=== PATIENT | female | born 1960 | race Caucasian/White ===

== ENCOUNTER 2018-04-05 14:02 | Observation (INO) | payer BC ==
[~2018-04-05] VITALS: Ht 170.2 cm; Wt 104.8 kg
[2018-04-05 14:09] VITALS: BP 173/103
[2018-04-05] MEDS ORDERED: VITAMIN D5000 UNIT PO (14:38)
[2018-04-05] MEDS ORDERED: ELIQUIS5 MG PO (14:39)
[2018-04-05] MEDS ORDERED: ENALAPRIL MALEA20 MG PO ×2 (14:39→14:42)
[2018-04-05] MEDS ORDERED: NORVASC2.5 MG PO (14:40)
[2018-04-05] MEDS ORDERED: SYNTHROID150 MCG PO (14:40)
[2018-04-05] MEDS ORDERED: CARVEDILOL12.5 MG PO (14:40)
[2018-04-05] MEDS ORDERED: PLAQUENIL200 MG PO (14:42)
[2018-04-05 14:43] LABS: HEMATOCRIT 39.5 % (37.0-47.0); HEMOGLOBIN 13.1 gm/dL (12.0-15.0); MCHC 33.3 g/dL (28.0-37.0); MCV 84.1 fL (80.0-100.0); RBC 4.69 mil/uL (4.20-5.00); RDW-CV 14.5 % (10.5-14.5); WBC 6.1 thou/uL (4.0-11.0)
[2018-04-05 14:51] LABS: CALCIUM 9.8 mg/dL (8.5-10.1); POTASSIUM 4.5 mmol/L (3.5-5.1)
[2018-04-05 14:52] LABS: APTT 31.3 Seconds (25.0-31.3); INR 1.1; PROTIME 10.8 Seconds (9.20-11.50)
[2018-04-05 14:56] LABS: ALBUMIN 3.5 g/dL (3.4-5.0); TOTAL BILIRUBIN 0.3 mg/dL (<0.1-1.0); TOTAL PROTEIN 7.4 g/dL (6.4-8.2)
--- NOTE | 2018-04-05 16:36 | 2DMMODE ---
[place] [address] 2 D/M-MODE ECHOCARDIOGRAM Name: CARMINA TERRAZAS Room: [place] [address] ADM IN [facility]#: [id number] Admission: 04/05/18 Attend Phys: Johann Meadows Discharge: Date of : 56 Date of Service: 04/05/18 1635 Report #: [id number] THIS REPORT FOR: //name// APPROVED REPORT Study performed: 04/05/2018 15:53:53 EXAM: Comprehensive 2D, Doppler, and color-flow Echocardiogram Patient Location: In-Patient Room #: er Status: routine BSA: 2.11 HR: 60 bpm BP: 164/80 mmHg Rhythm: NSR Other Information Study Quality: Good Indications Aortic Valve Disease Syncope Dizziness 2D Dimensions LVEF(%): 75.82 (>50%) IVSd: 12.95 (7-11mm) LVOT Diam: 18.77 (18-24mm) LVDd: 44.32 mm PWd: 10.51 (7-11mm) Ascending Ao: 33.84 (22-36mm) LVDs: 24.66 (25-40mm) Aortic Root: 28.05 mm Leyva's LVEF: 75.82 % Volumes Left Atrial Volume (Systole) LA ESV Index: 40.20 mL/m2 Aortic Valve AoV Peak Koko.: 2.71 m/s AO Peak Gr.: 29.45 mmHg LVOT Max P.71 mmHg AO Mean Gr.: 15.38 mmHg LVOT Mean P.58 mmHg LVOT Max V: 1.56 m/s AO V2 VTI: 61.45 cm LVOT Mean V: 0.97 m/s DARINEL (VTI): 1.76 cm2 LVOT V1 VTI: 39.03 [place] [address] 2 D/M-MODE ECHOCARDIOGRAM Name: CARMINA TERRAZAS Room: [address] IN ..#: [id number] Admission: 04/05/18 Attend Phys: Johann Meadows Discharge: Date of : 56 Date of Service: 04/05/18 1635 Report #: [id number] Mitral Valve E/A Ratio: 1.43 MV Decel. Time: 184.40 ms MV E Max Koko.: 0.83 m/s MV PHT: 53.48 ms MVA (PHT): 4.11 cm2 TDI E/Lateral E': 7.55 E/Medial E': 10.38 Medial E' Koko.: 0.08 m/s Lateral E' Koko.: 0.11 m/s Pulmonary Valve PV Peak Koko.: 1.19 m/s PV Peak Gr.: 5.62 mmHg Tricuspid Valve RAP Estimate: 5.00 mmHg TR Peak Gr.: 30.52 mmHg RVSP: 35.52 mmHg PA Pressure: 35.52 mmHg Left Ventricle The left ventricle is normal size. There is normal LV segmental wall motion. Mild concentric left ventricular hypertrophy. Left ventricular systolic function is normal. The left ventricular ejection fraction is within the normal range. LVEF is 60-65%. The left ventricular diastolic function is normal. Right Ventricle The right ventricle is normal size. The right ventricular systolic function is normal. Atria Left atrium is mildly dilated. Right atrium is mildly dilated. Aortic Valve Mild aortic valve sclerosis. Bioprosthetic aortic valve is present. Trace aortic regurgitation. No hemodynamically significant valvular aortic stenosis. Mitral Valve The mitral valve is normal in structure. Trace mitral regurgitation. No evidence of mitral valve stenosis. Tricuspid Valve The tricuspid valve is normal in structure[place] [address] 2 D/M-MODE ECHOCARDIOGRAM Name: CARMINA TERARZAS Room: [address] IN [facility]#: [id number] Admission: 04/05/18 Attend Phys: Johann Meadows Discharge: Date of : 56 Date of Service: 04/05/18 1635 Report #: [id number] regurgitation Pulmonic Valve The pulmonary valve is normal in structure. Trace pulmonic regurgitation. Great Vessels The aortic root is normal in size. IVC is normal in size and collapses with >50% inspiration Pericardium There is no pericardial effusion. <Conclusion> The left ventricle is normal size. Mild concentric left ventricular hypertrophy. Left ventricular systolic function is normal. The left ventricular ejection fraction is within the normal range. LVEF is 60-65%. The left ventricular diastolic function is normal. Left atrium is mildly dilated. Mild aortic valve sclerosis. Trace aortic regurgitation. No hemodynamically significant valvular aortic stenosis. The mitral valve is normal in structure. Trace mitral regurgitation. The tricuspid valve is normal in structure. Mild tricuspid regurgitation IVC is normal in size and collapses with >50% inspiration There is no pericardial effusion. There is normal LV segmental wall motion. Bioprosthetic aortic valve is present. <ELECTRONICALLY SIGNED> By: Glen Negro MD, FACC 04/05/18 1635 1635 1635 Glen Negro MD, FACC /INF
[2018-04-05 16:42] VITALS: BP 140/62
[2018-04-05 17:05] VITALS: BP 134/65
[2018-04-05 17:21] LABS: URINE BILIRUBIN NEGATIVE (Negative); URINE BLOOD NEGATIVE (Negative); URINE CLARITY CLEAR; URINE COLOR STRAW; URINE GLUCOSE-RANDOM NEGATIVE (Negative); URINE KETONES NEGATIVE (Negative); URINE LEUKOCYTES NEGATIVE (Negative); URINE NITRITE NEGATIVE (Negative); URINE PROTEIN NEGATIVE (Negative); URINE SPECIFIC GRAVITY <= 1.005 (1.005-1.030); URINE UROBILINOGEN 0.2 E.U./dl (0.2-1.0)
[2018-04-05] MEDS ORDERED: IRON325 M1 PO (17:31)
[2018-04-05 20:00] VITALS: BP 128/75
[2018-04-06] VITALS: BP 129/60
[2018-04-06 04:00] VITALS: BP 127/64
[2018-04-06 08:00] VITALS: BP 139/74
[2018-04-06] MEDS ORDERED: ASPIRIN81 M2 PO (11:35)
[2018-04-06 12:10] VITALS: BP 155/78
[2018-04-06 13:00] VITALS: BP 155/78
--- NOTE | 2018-04-06 16:29 | EKG ---
[place] [address] ELECTROCARDIOGRAM REPORT Name: CARMINA TERRAZAS Room: [address] IN M.R.#: [id number] Admission: 04/05/18 Attend Phys: Nalini Quispe Discharge: 04/06/18 Date of : 56 Report #: [id number] THIS REPORT FOR: //name// [facility] ED Test Date: 2018-04-05 Test Time: 14:13:08 Pat Name: CARMINA TERRAZAS Department: Room: [facility] Gender: F [employer] Operator: DERICK : 1960 Requested By: Maame Swartz Order Number: [id number] MD: Blair Armendariz Measurements Intervals [place] Rate: 62 P: 46 CA: 180 QRS: 56 QRSD: 110 T: 94 QT: 439 QTc: 446 Interpretive Statements Sinus rhythm Nonspecific T abnormalities, lateral leads Minimal ST elevation, consider early repolarization No previous ECG available for comparison Electronically Signed On 04-06-2018 16:29:00 CDT by Blair Armendariz [email or web address] <ELECTRONICALLY SIGNED> By: Blair Armendariz MD, [facility] 04/06/18 1629 1413 1413 Blair Armendariz MD, [facility] /EPI
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
== END 2018-04-06 13:40 | disposition home or self-care (01) ==
LOC: M.ERS 14:02 → M.2W 16:01 → M.TBA-ER 16:01 → M.2W 17:21
PROVIDERS: Physician Assistant; ADMIT Internal Medicine
DX: R42 Dizziness and giddiness (principal); I10 Essential (primary) hypertension; M32.9 Systemic lupus erythematosus, unspecified; M06.9 Rheumatoid arthritis, unspecified; E66.9 Obesity, unspecified; F17.210 Nicotine dependence, cigarettes, uncomplicated; I48.91 Unspecified atrial fibrillation; Z68.36 Body mass index [BMI] 36.0-36.9, adult; Z87.891 Personal history of nicotine dependence; Z95.2 Presence of prosthetic heart valve; Z98.890 Other specified postprocedural states; Z72.89 Other problems related to lifestyle; Z90.710 Acquired absence of both cervix and uterus